=== PATIENT | male | born 1955 | race Caucasian/White ===

== ENCOUNTER 2017-06-10 09:02 | Emergency (ER) | payer MEDICAID ==
[2017-06-10] MEDS ORDERED: EPINEPHRINE SYRINGE 0.1 MG/ML, 10ML ONE (09:30)
[2017-06-10] MEDS ORDERED: SODIUM BICARB 8.4%, 50ML SYRINGE ONE (09:30)
[2017-06-10] MEDS ORDERED: LIDOCAINE 2% 100MG/5ML SYRINGE ONE (09:30)
[2017-06-10] MEDS ORDERED: CALCIUM CHLORIDE 10%, 10ML SYR ONE (09:30)
== END 2017-06-10 12:23 | disposition expired ==
LOC: ED 09:14
DX: I46.9 Cardiac arrest, cause unspecified (principal); E78.00 Pure hypercholesterolemia, unspecified; I10 Essential (primary) hypertension; K50.90 Crohn's disease, unspecified, without complications
CPT/HCPCS: 92950; 99285